=== PATIENT | male | born 2005 | race Caucasian/White ===

== ENCOUNTER 2025-03-06 19:53 | Emergency (ER) | payer OTHER, BC ==
[2025-03-06] MEDS ORDERED: Sodium Chloride 0.9% 10 ML Syringe FLUSH PRN (20:11)
[2025-03-06] MEDS: Sodium Chloride 0.9% 10 ML Syringe FLUSH ONE (20:40)
[2025-03-06] MEDS: Iopamidol 612 MG/ML 100 ML Bottle IVPUSH ONE (20:40)
[2025-03-06] MEDS: Iopamidol 612 MG/ML 30 ML SDV IVPUSH ONE (20:41)
[2025-03-06 20:57] LABS: BASOPHILS ABSOLUTE AUTO 0.0 K/mm3 (0.0-0.2); BASOPHILS PERCENT AUTO 0.2 % (0.0-1.0); EOSINOPHILS ABSOLUTE AUTO 0.1 K/mm3 (0.0-0.4); EOSINOPHILS PERCENT AUTO 1.3 % (0.0-6.0); IMMATURE GRAN ABSOLUTE AUTO 0.02 K/mm3 (0.00-0.05); IMMATURE GRAN PERCENT AUTO 0.2 % (0.0-0.4); LYMPHOCYTES ABSOLUTE AUTO 2.6 K/mm3 (1.0-4.8); LYMPHOCYTES PERCENT AUTO 30.7 % (24.0-44.0); MEAN PLATELET VOLUME 9.8 fl (9.4-12.4); MONOCYTES ABSOLUTE AUTO 0.7 K/mm3 (0.0-0.8); MONOCYTES PERCENT AUTO 8.0 % (0.0-8.0); NEUTROPHILS ABSOLUTE AUTO 5.0 K/mm3 (1.8-7.7); NEUTROPHILS PERCENT AUTO 59.6 % (41.0-71.0); NRBC ABSOLUTE 0.00 (0.00-0.02); NRBC PERCENT 0.0 % (0.0-0.2); PLATELET COUNT,PLT 219 K/mm3 (150-400); RED BLOOD CELL COUNT 4.50 M/mm3 (4.52-5.90); WHITE BLOOD CELL COUNT,WBC 8.36 K/mm3 (3.9-11.3)
[2025-03-06 21:18] LABS: A/G RATIO 1.3 (1-2); ALANINE AMINOTRANSFERASE,ALT 26 U/L (16-63); ASPARTATE AMNIOTRANSFERASE,AST 18 U/L (15-37); BILIRUBIN TOTAL 0.4 mg/dL (0.2-1.0); BLOOD UREA NITROGEN,BUN 23 mg/dL (7-18); CARBON DIOXIDE,CO2 25 mEq/L (21-32); CHLORIDE,CL 104 mEq/L (98-107); CREATININE 0.9 mg/dL (0.7-1.3); ESTIMATED GFR 125 mL/min (>60); GLUCOSE RANDOM 87 mg/dL (70-99); POTASSIUM,K 3.4 mEq/L (3.5-5.1); PROTEIN TOTAL,TP 6.7 g/dl (6.4-8.2); SODIUM,NA 139 mEq/L (136-145)
[2025-03-06 21:19] LABS: ETHANOL BLOOD MEDICAL 0.00 gm% (0.00)
== END 2025-03-07 00:50 | disposition home or self-care (01) ==
LOC: JD.ED 19:53
DX: S52.502A Unspecified fracture of the lower end of left radius, initial encounter for closed fracture (principal); S62.235A Other nondisplaced fracture of base of first metacarpal bone, left hand, initial encounter for closed fracture; V87.8XXA Person injured in other specified noncollision transport accidents involving motor vehicle (traffic), initial encounter
CPT/HCPCS: 29125; 36415; 70450; 71260; 72125; 73030; 73090; 73130; 74177; 80053; 80307; 83690; 85025; 96361; 96374; 96376; 99284; A9270; J1171; J7030; Q9967